=== PATIENT | male | born 2000 | race Caucasian/White ===

== ENCOUNTER 2025-01-16 14:16 | Emergency (ER) | payer OTHER ==
[~2025-01-16] VITALS: Ht 193 cm; Wt 102.3 kg
[2025-01-16] MEDS ORDERED: NAPR-837 PO (15:44)
[2025-01-16 15:47] VITALS: BP 137/71; TEMP 98.1; O2SAT 98
== END 2025-01-16 15:56 | disposition home or self-care (01) ==
LOC: M ED 14:16
DX: S83.411A Sprain of medial collateral ligament of right knee, initial encounter (principal); X50.0XXA Overexertion from strenuous movement or load, initial encounter; Y92.9 Unspecified place or not applicable; Y93.89 Activity, other specified; Y99.9 Unspecified external cause status; Z79.1 Long term (current) use of non-steroidal anti-inflammatories (NSAID)